=== PATIENT | male | born 1960 | race African-American/Black ===

== ENCOUNTER 2021-01-19 14:47 | Emergency (ER) | payer BC ==
[~2021-01-19] VITALS: Ht 185.4 cm; Wt 137.3 kg
[2021-01-19 17:01] LABS: BASOPHILS % 0.6 % (0.0-2.0); EOSINOPHILS % 0.3 % (0.0-5.0); HEMATOCRIT. 38.2 % (42.0-52.0); HEMOGLOBIN. 12.6 g/dL (14.0-18.0); LYMPHOCYTES % 24.2 % (20.0-50.0); MEAN CORPUSCULAR HEMOGLOBIN 25.9 pg (28.0-32.0); MEAN CORPUSCULAR VOLUME 78.8 fL (80.0-94.0); MEAN PLATELET VOLUME 9.1 fl (7.4-10.4); MONOCYTES % 9.7 % (2.0-8.0); NEUTROPHILS % 65.2 % (40.0-76.0); PLATELET 147 x1000/uL (130-400); RED BLOOD CELL COUNT 4.85 mill/uL (4.7-6.1); RED CELL DISTRIBUTION WIDTH 17.4 % (11.6-14.6)
[2021-01-19 19:12] VITALS: BP 100/71
== END 2021-01-19 19:16 | disposition home or self-care (01) ==
LOC: ER 16:29
DX: R50.9 Fever, unspecified (principal)
CPT/HCPCS: 36415; 71045; 85025; 93005; 99285

== ENCOUNTER 2021-01-22 15:24 | Inpatient (IN) | payer BC ==
[~2021-01-22] VITALS: Ht 182.9 cm; Wt 139.7 kg
[2021-01-22] MEDS ORDERED: AZITHROMYCIN 500 MG in DEXT 5% WATER 250 ML IV ONE (16:15)
[2021-01-22] MEDS ORDERED: ACETAMINOPHEN 325MG TABLET PO ONE (16:15)
[2021-01-22] MEDS ORDERED: CEFTRIAXONE 1 G PREMIX 50 ML IV ONE (16:15)
[2021-01-22] MEDS ORDERED: ASPIRIN 81MG TABLET PO ONE (16:30)
[2021-01-22 17:03] LABS: BASOPHILS % 0.8 % (0.0-2.0); EOSINOPHILS % 0.2 % (0.0-5.0); HEMATOCRIT. 39.6 % (42.0-52.0); HEMOGLOBIN. 13.1 g/dL (14.0-18.0); LYMPHOCYTES % 14.3 % (20.0-50.0); MEAN CORPUSCULAR HEMOGLOBIN 25.9 pg (28.0-32.0); MEAN CORPUSCULAR VOLUME 77.9 fL (80.0-94.0); MEAN PLATELET VOLUME 9.7 fl (7.4-10.4); MONOCYTES % 5.3 % (2.0-8.0); NEUTROPHILS % 79.4 % (40.0-76.0); PLATELET 208 x1000/uL (130-400); RED BLOOD CELL COUNT 5.08 mill/uL (4.7-6.1); RED CELL DISTRIBUTION WIDTH 17.8 % (11.6-14.6)
[2021-01-22 17:11] LABS: CHLORIDE 103 mEq/L (98-107)
[2021-01-22 17:13] LABS: PARTIAL THROMBOPLASTIN TIME 25.9 sec (23.4-31.0); PROTHROMBIN TIME 10.9 sec (9.6-11.0)
[2021-01-22] MEDS ORDERED: OSELTAMIVIR 75MG CAPSULE PO ONE (17:45)
[2021-01-22] MEDS ORDERED: ENOXAPARIN 150MG/ML SYR SUBCUT ONE (18:45)
[2021-01-22 18:47] LABS: CLARITY URINE CLEAR (CLEAR); COLOR URINE DARK YELLOW (YELLOW); KETONES URINE 1+ (NEGATIVE); LEUKOCYTE ESTERASE URINE 2+ (NEGATIVE); NITRITE URINE NEGATIVE (NEGATIVE); OCCULT BLOOD URINE TRACE (NEGATIVE); PROTEIN URINE 2+ (NEGATIVE); SPECIFIC GRAVITY URINE 1.024 (1.005-1.030)
[2021-01-22 21:15] VITALS: BP 104/62
[2021-01-22] MEDS ORDERED: ALBUTEROL 6.7GM HFA INHALER ORI PRN (22:00)
[2021-01-22] MEDS ORDERED: AZITHROMYCIN 500 MG in DEXT 5% WATER 250 ML IV SCH (22:00)
[2021-01-22] MEDS: HYDROCODONE/ACETAMINOPHEN 5/325MG TABLET PO PRN (22:36)
[2021-01-23] VITALS: BP 101/75
[2021-01-23 04:00] VITALS: BP 109/73
[2021-01-23] MEDS: HYDROCODONE/ACETAMINOPHEN 5/325MG TABLET PO PRN ×2 (04:05→12:14)
[2021-01-23] MEDS: ACETAMINOPHEN 325MG TABLET PO PRN ×3 (06:46→22:11)
[2021-01-23 08:00] VITALS: BP 104/65
[2021-01-23] MEDS: ENOXAPARIN 30MG/0.3ML SYR SUBCUT SCH ×2 (08:10→22:11)
[2021-01-23 12:00] VITALS: BP 106/52
[2021-01-23] MEDS: TAMSULOSIN HCL 0.4MG SR CAPSULE PO SCH (15:12)
[2021-01-23 16:00] VITALS: BP 99/63
[2021-01-23] MEDS ORDERED: CEFTRIAXONE 1,000 MG in DEXTROSE 5% WATER 50 ML IV SCH (16:00)
[2021-01-23] MEDS ORDERED: AZITHROMYCIN 500 MG in DEXT 5% WATER 250 ML IV SCH (17:00)
[2021-01-23 20:00] VITALS: BP_SYST 101; BP_SYST 91; BP_DIAS 56; BP_DIAS 67
[2021-01-23 21:50] LABS: *AMPHETAMINES SCREEN URINE NEGATIVE (NEGATIVE); *BARBITURATES SCREEN URINE NEGATIVE (NEGATIVE); *BENZODIAZEPINES SCREEN URINE NEGATIVE (NEGATIVE); *COCAINE SCREEN URINE NEGATIVE (NEGATIVE)
[2021-01-23 21:51] LABS: CANNABINOID URINE SCREEN NEGATIVE (NEGATIVE); METHADONE URINE SCREEN NEGATIVE (NEGATIVE); OPIATES URINE SCREEN PRESUMTIVE POSITIVE (NEGATIVE); PHENCYCLIDINE URINE SCREEN NEGATIVE (NEGATIVE)
[2021-01-24] VITALS: BP 91/56
[2021-01-24] MEDS: HYDROCODONE/ACETAMINOPHEN 5/325MG TABLET PO PRN ×2 (03:47→17:28)
[2021-01-24 04:00] VITALS: BP 110/67
[2021-01-24 07:09] LABS: BASOPHILS % 0.5 % (0.0-2.0); EOSINOPHILS % 1.1 % (0.0-5.0); HEMATOCRIT. 34.1 % (42.0-52.0); HEMOGLOBIN. 11.2 g/dL (14.0-18.0); LYMPHOCYTES % 16.8 % (20.0-50.0); MEAN CORPUSCULAR HEMOGLOBIN 25.4 pg (28.0-32.0); MEAN CORPUSCULAR VOLUME 77.7 fL (80.0-94.0); MEAN PLATELET VOLUME 9.3 fl (7.4-10.4); MONOCYTES % 9.3 % (2.0-8.0); NEUTROPHILS % 72.3 % (40.0-76.0); PLATELET 243 x1000/uL (130-400); RED BLOOD CELL COUNT 4.38 mill/uL (4.7-6.1); RED CELL DISTRIBUTION WIDTH 17.3 % (11.6-14.6)
[2021-01-24 07:17] LABS: CHLORIDE 103 mEq/L (98-107)
[2021-01-24 08:00] VITALS: BP 115/73
[2021-01-24] MEDS: ENOXAPARIN 30MG/0.3ML SYR SUBCUT SCH (08:19)
[2021-01-24] MEDS: TAMSULOSIN HCL 0.4MG SR CAPSULE PO SCH (08:20)
[2021-01-24] MEDS: ACETAMINOPHEN 325MG TABLET PO PRN ×2 (11:09→21:03)
[2021-01-24 12:00] VITALS: BP 118/75
[2021-01-24] MEDS ORDERED: IOHEXOL-350 100 ML BOTTLE ONE (12:59)
[2021-01-24] MEDS ORDERED: CEFTRIAXONE 2 G PREMIX 50 ML IV SCH (15:00)
[2021-01-24 16:00] VITALS: BP 120/72
[2021-01-24] MEDS: CEFTRIAXONE 2 G in DEXTROSE 5% WATER 50 ML IV SCH (16:44)
[2021-01-24 20:00] VITALS: BP 102/68
[2021-01-24] MEDS: ENOXAPARIN 40MG/0.4ML SYR SUBCUT SCH (20:57)
[2021-01-25] VITALS (7 sets, daily range): BP systolic 100–131; BP diastolic 47–70
[2021-01-25 06:35] LABS: BASOPHILS % 0.6 % (0.0-2.0); HEMOGLOBIN. 10.8 g/dL (14.0-18.0); LYMPHOCYTES % 13.6 % (20.0-50.0); MEAN CORPUSCULAR HEMOGLOBIN 25.2 pg (28.0-32.0); MEAN CORPUSCULAR VOLUME 77.1 fL (80.0-94.0); MEAN PLATELET VOLUME 8.7 fl (7.4-10.4); MONOCYTES % 9.7 % (2.0-8.0); NEUTROPHILS % 75.1 % (40.0-76.0); PLATELET 367 x1000/uL (130-400); RED BLOOD CELL COUNT 4.28 mill/uL (4.7-6.1); RED CELL DISTRIBUTION WIDTH 17.1 % (11.6-14.6)
[2021-01-25 06:42] LABS: CHLORIDE 103 mEq/L (98-107)
[2021-01-25] MEDS: ACETAMINOPHEN 325MG TABLET PO PRN ×2 (07:28→18:19)
[2021-01-25] MEDS: ENOXAPARIN 40MG/0.4ML SYR SUBCUT SCH (09:13)
[2021-01-25] MEDS: TAMSULOSIN HCL 0.4MG SR CAPSULE PO SCH (09:14)
[2021-01-25] MEDS ORDERED: IOHEXOL-350 100 ML BOTTLE ONE (11:39)
[2021-01-25] MEDS ORDERED: ENOXAPARIN 100MG/ML SYR SUBCUT NR (12:15)
[2021-01-25] MEDS: CEFTRIAXONE 2 G in DEXTROSE 5% WATER 50 ML IV SCH (15:20)
[2021-01-25] MEDS: ENOXAPARIN 150MG/ML SYR SUBCUT SCH (22:42)
[2021-01-26] VITALS (7 sets, daily range): BP systolic 90–123; BP diastolic 60–72
[2021-01-26] MEDS: ACETAMINOPHEN 325MG TABLET PO PRN ×3 (01:21→12:27)
[2021-01-26] MEDS ORDERED: IPRATROPIUM/ALBUTEROL 0.5-3(2.5)MG/3ML NEB HHN PRN (06:30)
[2021-01-26] MEDS: ENOXAPARIN 150MG/ML SYR SUBCUT SCH ×2 (10:27→21:00)
[2021-01-26] MEDS: TAMSULOSIN HCL 0.4MG SR CAPSULE PO SCH (10:28)
[2021-01-26] MEDS ORDERED: XAR15 MT ×2 (13:23)
[2021-01-26] MEDS ORDERED: LEVO750T46 MT (13:23)
[2021-01-26] MEDS ORDERED: TAMS-11 MT (13:54)
[2021-01-26] MEDS: CEFTRIAXONE 2 G in DEXTROSE 5% WATER 50 ML IV SCH (15:53)
[2021-01-26] MEDS ORDERED: SODIUM CHLORIDE 0.9% 500 ML IV ONE (19:00)
[2021-01-26 23:31] LABS: BASOPHILS % 0.3 % (0.0-2.0); EOSINOPHILS % 0.1 % (0.0-5.0); HEMATOCRIT. 25.6 % (42.0-52.0); HEMOGLOBIN. 8.1 g/dL (14.0-18.0); LYMPHOCYTES % 11.7 % (20.0-50.0); MEAN CORPUSCULAR HEMOGLOBIN 24.7 pg (28.0-32.0); MEAN CORPUSCULAR VOLUME 77.9 fL (80.0-94.0); MEAN PLATELET VOLUME 8.6 fl (7.4-10.4); MONOCYTES % 7.7 % (2.0-8.0); NEUTROPHILS % 80.2 % (40.0-76.0); PLATELET 407 x1000/uL (130-400); RED BLOOD CELL COUNT 3.29 mill/uL (4.7-6.1); RED CELL DISTRIBUTION WIDTH 17.1 % (11.6-14.6)
[2021-01-27] VITALS (10 sets, daily range): BP systolic 90–114; BP diastolic 50–71
[2021-01-27] MEDS: SODIUM CHLORIDE 0.9% 1,000 ML IV SCH ×3 (01:17→19:49)
[2021-01-27] MEDS: PANTOPRAZOLE SODIUM 40 MG/VIAL IV SCH ×2 (01:17→19:49)
[2021-01-27 06:36] LABS: BASOPHILS % 0.7 % (0.0-2.0); EOSINOPHILS % 0.3 % (0.0-5.0); HEMATOCRIT. 23.7 % (42.0-52.0); HEMOGLOBIN. 7.5 g/dL (14.0-18.0); MEAN CORPUSCULAR VOLUME 78.5 fL (80.0-94.0); MONOCYTES % 9.2 % (2.0-8.0); NEUTROPHILS % 74.8 % (40.0-76.0); PLATELET 403 x1000/uL (130-400); RED BLOOD CELL COUNT 3.02 mill/uL (4.7-6.1); RED CELL DISTRIBUTION WIDTH 16.9 % (11.6-14.6)
[2021-01-27 06:41] LABS: CHLORIDE 106 mEq/L (98-107)
[2021-01-27] MEDS: TAMSULOSIN HCL 0.4MG SR CAPSULE PO SCH (12:30)
[2021-01-27] MEDS: CEFTRIAXONE 2 G in DEXTROSE 5% WATER 50 ML IV SCH (15:01)
[2021-01-27] MEDS ORDERED: ONDANSETRON HCL 4MG/2ML INJ IV PRN (18:00)
[2021-01-27] MEDS: METOCLOPRAMIDE HCL 10MG/2ML VIAL IV SCH (18:00)
[2021-01-27 18:50] LABS: TOTAL IRON BINDING CAPACITY 237 ug/dL (250-450)
[2021-01-27 19:16] LABS: FOLIC ACID (FOLATE) SERUM 8.9 ng/mL (>5.38)
[2021-01-27 20:35] LABS: PROTHROMBIN TIME 10.9 sec (9.6-11.0)
[2021-01-27] MEDS: ACETAMINOPHEN 325MG TABLET PO PRN (21:09)
[2021-01-27 21:54] LABS: HEMATOCRIT. 23.7 % (42.0-52.0); HEMOGLOBIN. 7.6 g/dL (14.0-18.0); MEAN CORPUSCULAR HEMOGLOBIN 25.5 pg (28.0-32.0); MEAN CORPUSCULAR VOLUME 79.2 fL (80.0-94.0); MEAN PLATELET VOLUME 8.5 fl (7.4-10.4); PLATELET 406 x1000/uL (130-400); RED CELL DISTRIBUTION WIDTH 17.1 % (11.6-14.6)
[2021-01-27 23:25] LABS: PLATELET ESTIMATE SLIGHTLY INCREASED
[2021-01-28] VITALS (14 sets, daily range): BP systolic 101–121; BP diastolic 55–76
[2021-01-28] MEDS: METOCLOPRAMIDE HCL 10MG/2ML VIAL IV SCH ×5 (00:36→22:58)
[2021-01-28] MEDS ORDERED: DEXT 5%/0.9% NACL 1,000 ML IV ONE (03:00)
[2021-01-28] MEDS: SODIUM CHLORIDE 0.9% 1,000 ML IV SCH ×2 (03:49→18:20)
[2021-01-28] MEDS: PANTOPRAZOLE SODIUM 40 MG/VIAL IV SCH ×2 (06:01→18:18)
[2021-01-28 06:42] LABS: HEMATOCRIT. 24.5 % (42.0-52.0); HEMOGLOBIN. 8.1 g/dL (14.0-18.0); MEAN CORPUSCULAR HEMOGLOBIN 26.1 pg (28.0-32.0); MEAN CORPUSCULAR VOLUME 79.2 fL (80.0-94.0); MEAN PLATELET VOLUME 8.1 fl (7.4-10.4); PLATELET 408 x1000/uL (130-400); RED CELL DISTRIBUTION WIDTH 16.7 % (11.6-14.6)
[2021-01-28 06:43] LABS: CHLORIDE 109 mEq/L (98-107)
[2021-01-28] MEDS ORDERED: BACTERIOSTATIC SODIUM CHLORIDE 0.9% 30ML VIAL IJ ONE (07:31)
[2021-01-28] MEDS ORDERED: IOHEXOL-300 100 ML BOTTLE ONE (09:04)
[2021-01-28] MEDS: TAMSULOSIN HCL 0.4MG SR CAPSULE PO SCH (09:46)
[2021-01-28] MEDS: ACETAMINOPHEN 325MG TABLET PO PRN ×2 (09:47→15:59)
[2021-01-28 12:12] LABS: HEMATOCRIT 24.3 % (42.0-52.0); HEMOGLOBIN 8.1 g/dL (14.0-18.0)
[2021-01-28] MEDS ORDERED: FENTANYL CITRATE/PF 50MCG/ML 2ML VIAL ONE (13:40)
[2021-01-28] MEDS ORDERED: MIDAZOLAM HCL 5 MG/5 ML VIAL ONE (13:41)
[2021-01-28] MEDS ORDERED: DIPHENHYDRAMINE 50MG/ML VIAL ONE ×2 (13:41→14:16)
[2021-01-28] MEDS ORDERED: FENTANYL CITRATE/PF 50MCG/ML 2ML VIAL IV ONE (13:51)
[2021-01-28] MEDS ORDERED: MIDAZOLAM HCL 2 MG/2 ML VIAL IV PRN (13:56)
[2021-01-28] MEDS ORDERED: DIAZEPAM 5 MG/ML 2ML CPJ IV PRN (14:00)
[2021-01-28] MEDS ORDERED: DIAZEPAM 5 MG/ML 2ML CPJ ONE (14:05)
[2021-01-28] MEDS ORDERED: DIPHENHYDRAMINE 50MG/ML VIAL IV PRN (14:50)
[2021-01-28 14:54] LABS: PLATELET ESTIMATE SLIGHTLY INCREASED
[2021-01-28] MEDS: FOLIC ACID 1MG TABLET PO SCH (15:52)
[2021-01-28] MEDS: CYANOCOBALAMIN 1000MCG/ML VIAL IM SCH (15:52)
[2021-01-28] MEDS: CEFTRIAXONE 2 G in DEXTROSE 5% WATER 50 ML IV SCH (15:52)
[2021-01-28] MEDS: IRON SUCROSE COMPLEX 100 MG/5 ML ML IV SCH (15:52)
[2021-01-28] MEDS ORDERED: PANTOPRAZOLE SODIUM 40 MG/VIAL IV SCH (18:00)
[2021-01-28] MEDS: SUCRALFATE 1 G/10 ML UDC PO SCH ×2 (18:18→20:21)
[2021-01-28 20:45] LABS: HEMATOCRIT 24.2 % (42.0-52.0); HEMOGLOBIN 8.1 g/dL (14.0-18.0)
[2021-01-29] VITALS (12 sets, daily range): BP systolic 90–114; BP diastolic 43–77
[2021-01-29 00:31] LABS: HEMATOCRIT 25.2 % (42.0-52.0); HEMOGLOBIN 8.3 g/dL (14.0-18.0)
[2021-01-29] MEDS: SODIUM CHLORIDE 0.9% 1,000 ML IV SCH ×3 (02:28→23:11)
[2021-01-29] MEDS: METOCLOPRAMIDE HCL 10MG/2ML VIAL IV SCH ×4 (05:00→23:09)
[2021-01-29] MEDS: PANTOPRAZOLE SODIUM 40 MG/VIAL IV SCH ×2 (05:00→17:21)
[2021-01-29 06:04] LABS: BASOPHILS % 0.9 % (0.0-2.0); EOSINOPHILS % 1.4 % (0.0-5.0); HEMATOCRIT. 22.2 % (42.0-52.0); HEMOGLOBIN. 7.4 g/dL (14.0-18.0); LYMPHOCYTES % 16.6 % (20.0-50.0); MEAN CORPUSCULAR HEMOGLOBIN 26.4 pg (28.0-32.0); MEAN CORPUSCULAR VOLUME 79.8 fL (80.0-94.0); MONOCYTES % 8.7 % (2.0-8.0); NEUTROPHILS % 72.4 % (40.0-76.0); PLATELET 354 x1000/uL (130-400); RED BLOOD CELL COUNT 2.79 mill/uL (4.7-6.1); RED CELL DISTRIBUTION WIDTH 16.4 % (11.6-14.6)
[2021-01-29 07:39] LABS: CHLORIDE 109 mEq/L (98-107)
[2021-01-29] MEDS: FOLIC ACID 1MG TABLET PO SCH (08:31)
[2021-01-29] MEDS: IRON SUCROSE COMPLEX 100 MG/5 ML ML IV SCH (08:31)
[2021-01-29] MEDS: SUCRALFATE 1 G/10 ML UDC PO SCH ×4 (08:31→20:16)
[2021-01-29] MEDS: CYANOCOBALAMIN 1000MCG/ML VIAL IM SCH (08:31)
[2021-01-29] MEDS: TAMSULOSIN HCL 0.4MG SR CAPSULE PO SCH (08:35)
[2021-01-29] MEDS: ACETAMINOPHEN 325MG TABLET PO PRN ×2 (10:42→18:35)
[2021-01-29] MEDS: CEFTRIAXONE 2 G in DEXTROSE 5% WATER 50 ML IV SCH (14:39)
[2021-01-29 15:27] LABS: HEMATOCRIT 24.8 % (42.0-52.0); HEMOGLOBIN 8.1 g/dL (14.0-18.0)
[2021-01-29 19:04] LABS: HEMATOCRIT 25.9 % (42.0-52.0); HEMOGLOBIN 8.7 g/dL (14.0-18.0)
[2021-01-30] VITALS (17 sets, daily range): BP systolic 104–145; BP diastolic 36–94
[2021-01-30 00:40] LABS: HEMATOCRIT 25.3 % (42.0-52.0); HEMOGLOBIN 8.2 g/dL (14.0-18.0)
[2021-01-30] MEDS: METOCLOPRAMIDE HCL 10MG/2ML VIAL IV SCH ×4 (05:22→23:49)
[2021-01-30] MEDS: PANTOPRAZOLE SODIUM 40 MG/VIAL IV SCH ×2 (05:22→17:48)
[2021-01-30] MEDS: ACETAMINOPHEN 325MG TABLET PO PRN ×3 (05:22→19:08)
[2021-01-30 07:05] LABS: BASOPHILS % 0.4 % (0.0-2.0); EOSINOPHILS % 1.8 % (0.0-5.0); HEMATOCRIT. 24.6 % (42.0-52.0); HEMOGLOBIN. 8.1 g/dL (14.0-18.0); LYMPHOCYTES % 16.3 % (20.0-50.0); MEAN CORPUSCULAR HEMOGLOBIN 26.7 pg (28.0-32.0); MEAN CORPUSCULAR VOLUME 81.4 fL (80.0-94.0); MEAN PLATELET VOLUME 7.7 fl (7.4-10.4); MONOCYTES % 8.2 % (2.0-8.0); NEUTROPHILS % 73.3 % (40.0-76.0); PLATELET 355 x1000/uL (130-400); RED BLOOD CELL COUNT 3.03 mill/uL (4.7-6.1); RED CELL DISTRIBUTION WIDTH 16.8 % (11.6-14.6)
[2021-01-30 07:20] LABS: CHLORIDE 111 mEq/L (98-107)
[2021-01-30] MEDS: IRON SUCROSE COMPLEX 100 MG/5 ML ML IV SCH (09:08)
[2021-01-30] MEDS: CYANOCOBALAMIN 1000MCG/ML VIAL IM SCH (09:08)
[2021-01-30] MEDS: TAMSULOSIN HCL 0.4MG SR CAPSULE PO SCH (09:09)
[2021-01-30] MEDS: SODIUM CHLORIDE 0.9% 1,000 ML IV SCH ×2 (09:11→21:59)
[2021-01-30] MEDS: FOLIC ACID 1MG TABLET PO SCH (09:11)
[2021-01-30] MEDS: SUCRALFATE 1 G/10 ML UDC PO SCH ×4 (09:13→21:59)
[2021-01-30] MEDS ORDERED: APIX5TAB MT (11:29)
[2021-01-30] MEDS ORDERED: APIX5TAB PO (11:29)
[2021-01-30 12:57] LABS: HEMOGLOBIN 8.8 g/dL (14.0-18.0)
[2021-01-30] MEDS: CEFTRIAXONE 2 G in DEXTROSE 5% WATER 50 ML IV SCH (16:19)
[2021-01-30 21:49] LABS: HEMATOCRIT 26.5 % (42.0-52.0); HEMOGLOBIN 8.8 g/dL (14.0-18.0)
[2021-01-31] VITALS (14 sets, daily range): BP systolic 84–135; BP diastolic 53–85
[2021-01-31] MEDS: ACETAMINOPHEN 325MG TABLET PO PRN ×4 (03:00→21:05)
[2021-01-31] MEDS: SODIUM CHLORIDE 0.9% 1,000 ML IV SCH ×3 (05:14→23:02)
[2021-01-31] MEDS: METOCLOPRAMIDE HCL 10MG/2ML VIAL IV SCH ×4 (05:14→23:02)
[2021-01-31] MEDS: PANTOPRAZOLE SODIUM 40 MG/VIAL IV SCH ×2 (05:14→18:00)
[2021-01-31 06:55] LABS: CHLORIDE 111 mEq/L (98-107)
[2021-01-31 07:03] LABS: BASOPHILS % 0.4 % (0.0-2.0); EOSINOPHILS % 1.4 % (0.0-5.0); HEMOGLOBIN. 8.8 g/dL (14.0-18.0); LYMPHOCYTES % 15.7 % (20.0-50.0); MEAN CORPUSCULAR HEMOGLOBIN 26.9 pg (28.0-32.0); MEAN CORPUSCULAR VOLUME 82.6 fL (80.0-94.0); MEAN PLATELET VOLUME 7.7 fl (7.4-10.4); NEUTROPHILS % 75.5 % (40.0-76.0); PLATELET 381 x1000/uL (130-400); RED BLOOD CELL COUNT 3.27 mill/uL (4.7-6.1); RED CELL DISTRIBUTION WIDTH 17.5 % (11.6-14.6)
[2021-01-31] MEDS: SUCRALFATE 1 G/10 ML UDC PO SCH ×4 (07:30→21:04)
[2021-01-31] MEDS: FOLIC ACID 1MG TABLET PO SCH (09:00)
[2021-01-31] MEDS: CYANOCOBALAMIN 1000MCG/ML VIAL IM SCH (09:40)
[2021-01-31] MEDS: TAMSULOSIN HCL 0.4MG SR CAPSULE PO SCH (09:41)
[2021-01-31] MEDS: APIXABAN 5 MG TABLET PO SCH ×2 (10:30→18:39)
[2021-01-31] MEDS: CEFTRIAXONE 2 G in DEXTROSE 5% WATER 50 ML IV SCH (13:56)
[2021-02-01 02:00] VITALS: BP 118/52
[2021-02-01] MEDS: ACETAMINOPHEN 325MG TABLET PO PRN ×2 (03:45→08:43)
[2021-02-01 04:00] VITALS: BP 105/66
[2021-02-01] MEDS: METOCLOPRAMIDE HCL 10MG/2ML VIAL IV SCH (04:59)
[2021-02-01] MEDS: PANTOPRAZOLE SODIUM 40 MG/VIAL IV SCH (04:59)
[2021-02-01 06:00] VITALS: BP 109/59
[2021-02-01 06:15] LABS: BASOPHILS % 0.5 % (0.0-2.0); EOSINOPHILS % 1.4 % (0.0-5.0); HEMATOCRIT. 29.3 % (42.0-52.0); HEMOGLOBIN. 9.3 g/dL (14.0-18.0); LYMPHOCYTES % 14.5 % (20.0-50.0); MEAN CORPUSCULAR HEMOGLOBIN 26.4 pg (28.0-32.0); MEAN CORPUSCULAR VOLUME 82.9 fL (80.0-94.0); MEAN PLATELET VOLUME 7.7 fl (7.4-10.4); MONOCYTES % 6.9 % (2.0-8.0); NEUTROPHILS % 76.7 % (40.0-76.0); PLATELET 434 x1000/uL (130-400); RED BLOOD CELL COUNT 3.53 mill/uL (4.7-6.1); RED CELL DISTRIBUTION WIDTH 18.3 % (11.6-14.6)
[2021-02-01 07:30] LABS: CHLORIDE 109 mEq/L (98-107)
[2021-02-01] MEDS: SUCRALFATE 1 G/10 ML UDC PO SCH (07:45)
[2021-02-01 08:00] VITALS: BP 114/56
[2021-02-01] MEDS: APIXABAN 5 MG TABLET PO SCH (09:17)
[2021-02-01] MEDS: FOLIC ACID 1MG TABLET PO SCH (09:18)
[2021-02-01] MEDS: TAMSULOSIN HCL 0.4MG SR CAPSULE PO SCH (09:19)
[2021-02-01] MEDS: CYANOCOBALAMIN 1000MCG/ML VIAL IM SCH (09:19)
[2021-02-01 10:00] VITALS: BP 108/50
== END 2021-02-01 12:05 | disposition home or self-care (01) | DRG 871 ==
LOC: ER 15:24 → 7WST 18:38 → ENRESERV 20:21 → 8WST 01-24 09:15 → 5EST 01-27 23:27
PROVIDERS: ADMIT Internal Medicine; ATTEND Internal Medicine
PROC: 30233N1 Transfusion of Nonautologous Red Blood Cells into Peripheral Vein, Percutaneous Approach (ICD-10-PCS; 2021-01-27)
PROC: 0DB68ZX Excision of Stomach, Via Natural or Artificial Opening Endoscopic, Diagnostic (ICD-10-PCS; principal; 2021-01-28)
DX: A41.59 Other Gram-negative sepsis (principal); E43 Unspecified severe protein-calorie malnutrition; I26.99 Other pulmonary embolism without acute cor pulmonale; J96.00 Acute respiratory failure, unspecified whether with hypoxia or hypercapnia; K25.4 Chronic or unspecified gastric ulcer with hemorrhage; N39.0 Urinary tract infection, site not specified; Z68.41 Body mass index [BMI] 40.0-44.9, adult; Z98.84 Bariatric surgery status; R55 Syncope and collapse; N41.9 Inflammatory disease of prostate, unspecified; Z20.822 Contact with and (suspected) exposure to COVID-19; E66.01 Morbid (severe) obesity due to excess calories; E78.5 Hyperlipidemia, unspecified; I27.20 Pulmonary hypertension, unspecified; I11.9 Hypertensive heart disease without heart failure; N40.0 Benign prostatic hyperplasia without lower urinary tract symptoms; D50.9 Iron deficiency anemia, unspecified; Z86.711 Personal history of pulmonary embolism
CPT/HCPCS: 36415; 71045; 71275; 74177; 76700; 80048; 80053; 80076; 80305; 81003; 82607; 82728; 82746; 82962; 83540; 83550; 83605; 83880; 84145; 84484; 85014; 85018; 85025; 85044; 85379; 86850; 86900; 86920; 87077; 87186; 87426; 87804; 88305; 88312; 88313; 93005; 93306; 93970; 97116; 97162; 97166; 97530; 97535; 99285; C1893; C9113; J0456; J0696; J1200; J1650; J2250; J2405; J2765; J3010; J3420; J3490; J7030; J7040; J7042; J7060; J7070; P9016; Q9967; U0003